=== PATIENT | male | born 1980 | race Caucasian/White ===

== ENCOUNTER 2022-01-12 06:45 | Inpatient (IN) | payer OTHER, SELFPAY ==
[2022-01-12 06:52] VITALS: BP 147/84; PULSE 96; RESP 16; TEMP 36.7; O2SAT 100
--- NOTE | 2022-01-12 07:00 | ED.GENADUL_ITS ---
Discharge Plan Disposition Patient Disposition: STILL A PATIENT Condition: Stable Discharge Details Chief Complaint: Abd Prob Clinical Impression: Abdominal pain, LLQ Primary Care Provider: Franklyn Heredia ED Provider: Ulisses Lindsay Home Meds and New Rx's Prescriptions: No Action No Known Home Meds Medical Decision Making 41-year-old male with a past medical history of diverticulitis with rupture in the past, presents today with left lower quadrant pain. Patient states that 1 week ago he developed left lower quadrant pain, went to see his primary care provider. Suspicion was for diverticulitis, and he was given a prescription for Cipro/Flagyl. Unfortunately the patient's pain went away that afternoon and so he never filled or started taking the medication. 2 days ago the symptoms returned, and it is painful when walking or moving. He has pain with bowel movements but no blood in his stool. He denies chest pain or shortness of breath. He denies any nausea or vomiting. He denies any urinary complaints or genital complaints. No other complaints at this time. No other modifying factors. Physical exam demonstrates mild left lower quadrant tenderness. No right-sided abdominal tenderness. Concern is for diverticulitis, but with the historical context there is also a higher concern for previous rupture and now abscess. I do feel that CT scan of the abdomen is indicated at this time. We will give Toradol for pain, gently rehydrate, monitor closely and reassess. Case will be signed out to my colleague Dr. Abi Joseph for follow-up on labs and imaging. HPI General Date/Time Provider Initiated Documentation: 01/12/22 06:59 . HPI Narrative: 41-year-old male with a past medical history of diverticulitis with rupture in the past, presents today with left lower quadrant pain. Patient states that 1 week ago he developed left lower quadrant pain, went to see his primary care provider. Suspicion was for diverticulitis, and he was given a prescription for Cipro/Flagyl. Unfortunately the patient's pain went away that afternoon and so he never filled or started taking the medication. 2 days ago the symptoms returned, and it is painful when walking or moving. He has pain with bowel movements but no blood in his stool. He denies chest pain or shortness of breath. He denies any nausea or vomiting. He denies any urinary complaints or genital complaints. No other complaints at this time. No other modifying factors. Related Data Home Medications Medication Instructions Recorded Confirmed Unknown [No Known Home Meds] 10/18/16 10/18/16 Allergies Allergy/AdvReac Type Severity Reaction Status Date / Time Penicillins Allergy Unknown known in Unverified 01/12/22 06:59 family members General Stated Complaint: Abd Prob BETY: 3 Review of Systems All systems reviewed & are unremarkable except as noted in HPI and below PFSH All Active Problems (Updated 01/12/22 @ 07:06 by Ulisses Lindsay DO) Abdominal pain, LLQ (Acute) Social History Smoking/Tobacco Use Status: Current-Occasional Tobacco Type: smokeless tobacco Smoking risk assessment performed?: Yes Alcohol Intake: former Drug use: Never Substance use type: does not use Do you feel safe in your relationship?: Yes Exam Narrative Exam Narrative: 1.Const: Well-nourished, Well-developed, appearing stated age 2.Eyes: PERRL, no conjunctival injection, and symmetrical lids. 3.ENT: Atraumatic external nose and ears. Moist MM. Neck: Symmetric, trachea midline, No thyromegaly. 4.CVS: +S1/S2, No murmurs or gallops. Peripheral pulses 2+ and equal in all extremities. Brisk capillary refill in all extremities. 5.RESP: Unlabored respiratory effort. Clear to auscultation bilaterally. No wheezes rales or rhonchi 6.GI: Soft, nondistended, no guarding or rebound. Mild to moderate left lower quadrant pain on palpation. No right-sided abdominal tenderness. No pain or tenderness on palpation of the genitals. No evidence of inguinal hernia. 7.MSK: Normocephalic/Atraumatic, Extremities w/o deformity or ttp No cyanosis or clubbing, Normal movement of all extremities 8.Skin: Warm, Dry. No rashes or lesions. 9.Neuro: policy adviser II-XII grossly intact. Sensation grossly intact, no focal neurologic deficits. 10.Psych: (AAO) x3. Appropriate mood and affect Course Vital Signs Vital signs: Vital Signs Temperature 36.7 C 01/12/22 06:52 Pulse 96 H 01/12/22 06:52 Respiratory Rate 16 01/12/22 06:52 Blood Pressure 147/84 H 01/12/22 06:52 Pulse Oximetry 100 01/12/22 06:52 Temperature 36.7 C 01/12/22 06:52 Temperature Source Temporal Artery Scan 01/12/22 06:52 Pulse 96 H 01/12/22 06:52 Respiratory Rate 16 01/12/22 06:52 Respiratory Effort 01/12/22 06:52 Blood Pressure 147/84 H 01/12/22 06:52 Blood Pressure Position Sitting 01/12/22 06:52 Pulse Oximetry 100 01/12/22 06:52 Pain Level 7 01/12/22 06:52
[2022-01-12 07:17] LABS: Abs Immature Grans 0.06 10^3/uL (0.0-0.06); Absolute Eosinophil Count 0.03 10^3/uL (0.0-0.7); Absolute Lymphocyte Count 1.74 10^3/uL (1.2-3.4); Absolute Monocyte Count 1.24 10^3/uL (0.1-0.8); Basophils % 0.3; Eosinophils % 0.2; HCT 45.4 % (40.0-50.0); HGB 14.6 g/dL (13.5-17.5); Immature Grans % 0.4; Lymphocytes % 11.2; MCH 29.7 pg (27.0-33.0); MCHC 32.2 % (32.0-36.0); MCV 93 fL (80-95); MPV 9.7 fL (8.0-11.0); Neutrophils % 79.9; Platelet Count 233 10^3/uL (130-400); RBC 4.91 10^6/uL (4.36-5.78); RDW 12.3 % (11.8-14.1); RDW-SD 42.4 fL; WBC 15.56 10^3/uL (4.4-10.8)
[2022-01-12] MEDS: Ketorolac 15 MG/ML VIAL IVP (07:22)
[2022-01-12] MEDS: Normal Saline 500 ML IV (07:22)
[2022-01-12 07:28] LABS: Absolute Basophil Count 0.05 10^3/uL (0.0-0.2); Absolute Neutrophil Count 12.43 10^3/uL (1.2-6.7)
[2022-01-12 07:35] LABS: ALT 28 U/L (16-63); AST 15 U/L (15-37); Albumin 3.7 g/dL (3.4-5.0); Alkaline Phosphatase 79 U/L (46-116); Anion Gap 7.2 mmol/L (3-11); BUN 12 mg/dL (7-18); Bilirubin, Total 1.4 mg/dL (0.2-1.0); CO2 27.8 mmol/L (21.0-32.0); CREATININE 1.1 mg/dL (0.70-1.30); Calcium 8.7 mg/dL (8.5-10.1); Chloride 101 mmol/L (98-107); Glucose 114 mg/dL (74-106); Potassium 3.9 mmol/L (3.5-5.1); Sodium 136 mmol/L (136-145); Total Protein 7.9 g/dL (6.4-8.2)
--- NOTE | 2022-01-12 07:49 | DI.CT_ITS ---
Exam(s) CT ABDOMEN PELVIS WO EXAM: CT ABDOMEN PELVIS WO CLINICAL HISTORY: LLQ pain, hx of dtics, eval for divertic rupture. TECHNIQUE: Imaging Protocol: Axial computed tomography images with coronal and sagittal reformatted images were created and reviewed. Oral: no COMPARISON: CT ABD PELVIS WITH CONTRAST from 12/19/2013 FINDINGS: ABDOMEN: Lung Bases: Normal where visualized. Bilateral gynecomastia. Liver: Normal density. No measurable mass. Gallbladder and biliary tract: Gallstones. No biliary dilation. Pancreas: Normal density, no abnormal calcifications or inflammatory process. Spleen: Normal. Kidneys: Normal size, contour and axis. No radiodense stones or obstructive uropathy. No masses seen. Adrenal glands: No masses seen. Lymph nodes: Within normal limits. Abdominal Aorta: Abdominal portion non-dilated. PELVIS: Bladder: Symmetric distention, no gross wall thickening. Bowel: Prominent diverticulosis descending and sigmoid colon. Severe acute diverticulitis involving descending colon. Small adjacent bubbles of free air consistent with perforation. No obstruction. N o drainable abscess. Peritoneal cavity: Small amount of free fluid in low pelvis. Reproductive organs: Within normal limi ts. Bones: Within normal limits. IMPRESSION: Severe diverticulitis of the descending colon with perforation. No abscess. Small amount of fluid in the low pelvis. RADIATION DOSE DELIVERED: 1,188.48mGy.cm Total DLP DATA REPOSITORY: All CT scans at this facility are submitted to the National Radiology Data Registry (NRDR) Dose Index Registry (DIR) with the [employer] (ACR). RADIATION OPTIMIZATION: All CT scans at this facility use at least one of these dose optimization te chniques: automated exposure control; mA and/or kV adjustment per patient size (includes targeted exa ms where dose is matched to clinical indication); or iterative reconstruction.
--- NOTE | 2022-01-12 08:08 | DI.VRAD_ITS ---
Addendum created by Lory Del Valle MD on 01/12/2022 8:10:07 AM EDT: THIS REPORT CONTAINS FINDINGS THAT MAY BE CRITICAL TO PATIENT CARE. The findings were verbally communicated via telephone conference at 8:09 AM EDT on 01/12/[address] Joseph. The findings were acknowledged and understood. Initial report created on 01/12/2022 8:08:32 AM EDT: PROCEDURE INFORMATION: Exam: CT Abdomen And Pelvis Without Contrast Exam date and time: 01/12/2022 7:47 AM Age: 41 years old Clinical indication: Abdominal pain; Generalized; Patient HX: Llq pain, HX of dtics, eval for divertic upture. TECHNIQUE: Imaging protocol: Computed tomography of the abdomen and pelvis without contrast. Radiation optimization: All CT scans at this facility use at least one of these dose optimization techniques: automated exposure control; mA and/or kV adjustment per patient size (includes targeted exams where dose is matched to clinical indication); or iterative reconstruction. COMPARISON: US ABDOMEN ULTRASOUND (P) 09/19/2015 4:03 PM FINDINGS: Lungs: There are dependent hypoventilatory changes bilaterally. There is minimal linear subsegmental atelectasis versus scarring in the right middle lobe. No pleural effusions. Liver: Hepatic steatosis. Gallbladder and bile ducts: Multiple small layering calcified gallstones are noted in the gallbladder. The gallbladder is not overtly dilated. No intrahepatic or extrahepatic biliary ductal dilation. Pancreas: Unremarkable. Spleen: Unremarkable. The spleen is normal in size. Adrenal glands: Unremarkable. Kidneys and ureters: The kidneys are normal and symmetric in size, without hydronephrosis, calcifications, or contour-deforming masses. No calcifications are identified in the ureters, which are normal in caliber. Stomach and bowel: The stomach is largely decompressed and therefore not optimally assessed. The small and large bowel are normal in caliber. There is circumferential mural thickening in and inflammatory fat stranding about the distal descending and proximal sigmoid colon where there are multiple diverticula, findings compatible with acute diverticulitis. There are mottled foci of extraluminal gas adjacent to the distal descending colon, compatible with perforation. No discrete drainable fluid collection is identified to suggest abscess. Appendix: Normal caliber. No findings to suggest appendicitis. Intraperitoneal space: Mild ascites in the left lower quadrant and pelvis. No discrete fluid collection. Mottled foci of extraluminal gas adjacent to the distal descending colon as described above. Retroperitoneal space: Unremarkable. No retroperitoneal collection or mass. Vasculature: Unremarkable. The abdominal aorta is normal in caliber. Lymph nodes: No pathologically enlarged lymph nodes. Urinary bladder: Unremarkable. Reproductive: Unremarkable as visualized. Bones/joints: Degenerative changes. No suspicious osseous lesions. Soft tissues: Bilateral gynecomastia. Other findings: None. IMPRESSION: Perforated acute diverticulitis in the distal descending/proximal sigmoid colon, with very mild pneumoperitoneum and mild ascites. No drainable fluid collection. Dictated and Authenticated by: Lory Del Valle MD. Ordering:BRIONNA Gtz MD
[2022-01-12 08:35] LABS: Bilirubin Small (Negative); Blood Small (Negative); Clarity Clear (Clear); Glucose Negative (Negative); Ketones 40 mg/dL (Negative); Leukocyte Esterase Negative (Negative); Nitrite Positive (Negative); Specific Gravity >= 1.030 (1.005-1.025)
[2022-01-12 08:42] LABS: Bacteria Few HPF (Negative); Crystals Negative HPF (Negative); Epithelial Cells Rare HPF (Negative); Mucus Moderate (Negative); WBC 0-2 HPF (0-5)
[2022-01-12 08:43] LABS: C & S Indicated? Yes; Casts 3-5 Hyaline LPF (Negative)
[2022-01-12 09:02] LABS: Source Nasal/Nares
--- NOTE | 2022-01-12 09:04 | ED.PROG_ITS ---
Date of service: 01/12/22 Time of Service: 08:04 Medical Decision Making Patient signed out to me at time of shift change by Dr. Lindsay with CT, labs pending. CT shows perforated diver reticulitis small amount of ascites, no abscess. I discussed patient presentation and results with Dr. Fraser of surgery, who will admit the patient. Patient is amenable to admission. Medical Records Medical records reviewed: Yes I reviewed the patient's medical records. Imaging Data Radiologic Study: Radiologist's impression: EXAM:? CT ABDOMEN ? PELVIS WO CLINICAL HISTORY: ? LLQ pain, hx of dtics, eval for divertic rupture.? TECHNIQUE:? Imaging Protocol: Axial computed tomography images with coronal and sagittal reformatted images were created and reviewed. Oral:? no COMPARISON:? CT ABD ? PELVIS WITH CONTRAST from 12/19/2013 FINDINGS: ABDOMEN: Lung Bases: Normal where visualized.? Bilateral gynecomastia.? Liver: Normal density. No measurable mass. Gallbladder and biliary tract: Gallstones.? No biliary dilation.? Pancreas: Normal density, no abnormal calcifications or inflammatory process. Spleen: Normal. Kidneys: Normal size, contour and axis. No radiodense stones or obstructive uropathy. No masses seen. Adrenal glands: No masses seen. Lymph nodes: Within normal limits. Abdominal Aorta: Abdominal portion non-dilated. PELVIS:? Bladder: Symmetric distention, no gross wall thickening. Bowel: Prominent diverticulosis descending and sigmoid colon.? Severe acute diverticulitis involving descending colon.? Small adjacent bubbles of free air consistent with perforation.? No obstruction. No drainable abscess. Peritoneal cavity: Small amount of free fluid in low pelvis.? Reproductive organs: Within normal limits. Bones: Within normal limits. IMPRESSION: Severe diverticulitis of the descending colon with perforation. No abscess. Small amount of fluid in the low pelvis. Lab Data Lab results reviewed: Yes I reviewed the patient's lab results. Labs: 01/12/22 08:16 Urine - Reflex from Ua Urine Culture - Preliminary Gram Positive Ju Laboratory Tests Range/Units 01/12/22 01/12/22 01/12/22 07:14 07:14 08:16 WBC (4.4-10.8) 10^3/uL 15.56 H RBC (4.36-5.78) 10^6/uL 4.91 Hgb (13.5-17.5) g/dL 14.6 Hct (40.0-50.0) % 45.4 MCV (80-95) fL 93 MCH (27.0-33.0) pg 29.7 MCHC (32.0-36.0) % 32.2 RDW (11.8-14.1) % 12.3 Plt Count (130-400) 10^3/uL 233 MPV (8.0-11.0) fL 9.7 Immature Gran % 0.4 Neutrophils % 79.9 Lymphocytes % 11.2 Monocytes % 8.0 Eosinophils % 0.2 Basophils % 0.3 Nucleated RBC % (0.0-0.3) % 0.0 Absolute Neutrophils (1.2-6.7) 10^3/uL 12.43 H Absolute Lymphocytes (1.2-3.4) 10^3/uL 1.74 Absolute Monocytes (0.1-0.8) 10^3/uL 1.24 H Absolute Eosinophils (0.0-0.7) 10^3/uL 0.03 Absolute Basophils (0.0-0.2) 10^3/uL 0.05 Sodium (136-145) mmol/L 136 Potassium (3.5-5.1) mmol/L 3.9 Chloride (98-107) mmol/L 101 Carbon Dioxide (21.0-32.0) mmol/L 27.8 Anion Gap (3-11) mmol/L 7.2 BUN (7-18) mg/dL 12 Creatinine (0.70-1.30) mg/dL 1.1 Estimated GFR/1.73 m2 (mL/min/1.73m2) >= 60.00 Glucose (74-106) mg/dL 114 H Calcium (8.5-10.1) mg/dL 8.7 Total Bilirubin (0.2-1.0) mg/dL 1.4 H AST (15-37) U/L 15 ALT (16-63) U/L 28 Alkaline Phosphatase (46-116) U/L 79 Total Protein (6.4-8.2) g/dL 7.9 Albumin (3.4-5.0) g/dL 3.7 Urine Color (Yellow) Dark Yellow Urine Clarity (Clear) Clear Urine pH (5-8) 6.0 Ur Specific [place] (1.005-1.025) >= 1.030 H Urine Protein (Negative) mg/dL 30 H Urine Ketones (Negative) mg/dL 40 H Urine Blood (Negative) Small H Urine Nitrite (Negative) Positive H Urine Bilirubin (Negative) Small H Urine Urobilinogen (Up TO 0.2) EU/dL 1.0 H Ur Leukocyte Esterase (Negative) Negative Urine RBC (0-2) HPF 3-5 H Urine WBC (0-5) HPF 0-2 Ur Epithelial Cells (Negative) HPF Rare Urine Crystals (Negative) HPF Negative Urine Bacteria (Negative) HPF Few Urine Casts (Negative) LPF 3-5 Hyaline Urine Mucus (Negative) Moderate Ur Culture Indicated? Yes Urine Glucose (Negative) mg/dL Negative Sign Out Sign Out Data: Sign Out Comment: LLQ pain, suspect diverticulitis. Pending labs and CT scan Last updated by Ulisses Lindsay DO at 01/12/22 07:08 Discharge Plan Disposition Patient Disposition: [facility] INPATIENT Condition: Stable Discharge Details Clinical Impression: Diverticulitis of large intestine with perforation Admit Date/Time: 01/12/22 08:44 Admit Provider: Keara Fraser Attending Provider: Keara Fraser Primary Care Provider: Franklyn Heredia ED Provider: Kristen Joseph Discharge Data Discharge Date/Time-TO BE ENTERED AT DEPARTURE: 01/12/22 10:05
[2022-01-12] MEDS: Pantoprazole 40 MG VIAL IVP ×2 (09:17→11:50)
[2022-01-12] MEDS: PIPERACILLIN/TAZO 3.375 GM in Normal Saline 50 ML IVPB ×4 (09:24→23:51)
[2022-01-12 10:06] LABS: COVID-19 PCR Negative (Negative)
[2022-01-12 10:17] VITALS: BP 143/89; PULSE 85; RESP 16; TEMP 36.1; O2SAT 99
[2022-01-12 10:23] VITALS: BP 143/89; PULSE 85; RESP 16; TEMP 36.1; O2SAT 100
[2022-01-12] MEDS: Enoxaparin 40 MG/0.4 ML SYR SC (11:51)
[2022-01-12] MEDS: Normal Saline Flush 10 ML SYR IVP (11:51)
[2022-01-12] MEDS: Normal Saline 500 ML 50 ML IV (12:01)
[2022-01-12] MEDS: Lactated Ringers 1,000 ML 125 ML IV (13:52)
[2022-01-12 14:48] VITALS: BP 136/67; PULSE 91; RESP 17; TEMP 37.7; O2SAT 97
--- NOTE | 2022-01-12 15:07 | W.PREOPHP ---
Assessment and Plan Assessment and plan (1) Diverticulitis of large intestine with perforation: Status: Acute Assessment and plan: Mr. Blankenship is a 41 year old with a past medical Hx significant for HTN and previous bout of diverticulitis needing 5 days of hospitalisation and IV ABX treatment. [place] was normal, per patient, except for diverticulosis. he comes in again with LLQ pain. CT scan revealed severe diverticulitis of the descending colon with perforation. No abscess. Discussed with patient the findings and that he is at risk of developing an abscess which may then need drainage. His exam is very benign this afternoon. P: Continue IV ABX Start clear liquids Will get the colonoscopy report from [facility] (2) Hypertension: History of Present Illness Consults Consult date: 01/12/22 Requesting physician: Kristen Joseph Narrative: Mr. Blankenship is a pleasant 41 year old male who was seen in the ER with abdominal pain. He started having LLQ pain last Wednesday. He was started on ABx by his PCP. He then felt better and never started his ABX. he then started to have increasing pain. He tells me that he had an episode of severe diverticulitis 8 years ago and was admitted at [facility] for 5 days for IV antibiotics. He then underwent a Colonoscopy 6 weeks later. He didn't have surgery. He tells me that feels very well now. He has no abdominal pain, N/V. I did reviewe his CT scan. COMPARISON:? CT ABD ? PELVIS WITH CONTRAST from 12/19/2013 FINDINGS: ABDOMEN: Lung Bases: Normal where visualized.? Bilateral gynecomastia.? Liver: Normal density. No measurable mass. Gallbladder and biliary tract: Gallstones.? No biliary dilation.? Pancreas: Normal density, no abnormal calcifications or inflammatory process. Spleen: Normal. Kidneys: Normal size, contour and axis. No radiodense stones or obstructive uropathy. No masses seen. Adrenal glands: No masses seen. Lymph nodes: Within normal limits. Abdominal Aorta: Abdominal portion non-dilated. PELVIS:? Bladder: Symmetric distention, no gross wall thickening. Bowel: Prominent diverticulosis descending and sigmoid colon.? Severe acute diverticulitis involving descending colon.? Small adjacent bubbles of free air consistent with perforation.? No obstruction. No drainable abscess. Peritoneal cavity: Small amount of free fluid in low pelvis.? Reproductive organs: Within normal limits. Bones: Within normal limits. IMPRESSION: Severe diverticulitis of the descending colon with perforation. No abscess. Small amount of fluid in the low pelvis. Review of Systems Constitutional Constitutional: Denies fever(s), Denies headache(s), Denies night sweats, Denies poor appetite and Denies weight loss Eyes Eyes: Denies change in vision ENT Ears, Nose, Mouth, and Throat: Denies change in voice and Denies headache(s) Cardiovascular Cardiovascular: Denies chest pain, Denies chest pain at rest, Denies irregular heart rhythm, Denies palpitations, Denies dyspnea and Denies dyspnea on exertion Respiratory Respiratory: Denies cough, Denies dyspnea and Denies dyspnea on exertion Gastrointestinal Gastrointestinal: Reports as per HPI, Denies dyspepsia and Denies heartburn Genitourinary Genitourinary: Denies oliguria, Denies dysuria and Denies urinary frequency Musculoskeletal Musculoskeletal: Reports system reviewed and no additional complaints, except as documented Integumentary/Breasts Skin/Breast: Reports system reviewed and no additional complaints, except as documented Neurologic Neurologic: Reports system reviewed and no additional complaints, except as documented and Denies headache(s) Psychiatric Psychiatric: Reports system reviewed and no additional complaints, except as documented Endocrine Endocrine: Reports system reviewed and no additional complaints, except as documented and Denies palpitations PFSH All Active Problems (Updated 01/12/22 @ 15:16 by Keara Fraser MD) Diverticulitis of large intestine with perforation (Acute) Abdominal pain, LLQ (Acute) Medical History (Updated 01/12/22 @ 15:16 by Keara Fraser MD) Hypertension Surgical History (Updated 01/12/22 @ 15:13 by Keara Fraser MD) S/P colonoscopy Social History Smoking/Tobacco Use Status: Current-Occasional Tobacco Type: smokeless tobacco Smoking risk assessment performed?: Yes Alcohol Intake: former Drug use: Never Substance use type: does not use Do you feel safe in your relationship?: Yes Meds Allergies and Home Medications Allergies Allergy/AdvReac Type Severity Reaction Status Date / Time Penicillins Allergy Unknown known in Unverified 01/12/22 06:59 family members Home Medications Medication Instructions Recorded Confirmed Type ibuprofen 800 mg tablet 800 mg PO TID PRN 01/12/22 01/12/22 History lisinopril 10 mg tablet 10 mg PO DAILY 01/12/22 01/12/22 History loratadine 10 mg tablet 10 mg PO DAILY 01/12/22 01/12/22 History Exam Const General: cooperative, healthy appearing, comfortable and no acute distress Orientation: alert and oriented x3 HENMT Head: normocephalic and atraumatic Eyes Pupils: PERRL Resp Effort & Inspection: normal respiratory effort Auscultation: clear to auscultation bilaterally Cardio Rate: regular rate Rhythm: regular rhythm Heart Sounds: no gallops, no murmurs and no rubs GI Inspection: normal to inspection Palpation: soft, no hepatosplenomegaly and nontender Auscultation: normal bowel sounds Results Labs Result diagrams: 01/12/22 07:14 01/12/22 07:14 Labs: Laboratory Results - last 24 hr 01/12/22 01/12/22 01/12/22 07:14 07:14 08:16 WBC 15.56 H RBC 4.91 Hgb 14.6 Hct 45.4 MCV 93 MCH 29.7 MCHC 32.2 RDW 12.3 Plt Count 233 MPV 9.7 Immature Gran % 0.4 Neutrophils % 79.9 Lymphocytes % 11.2 Monocytes % 8.0 Eosinophils % 0.2 Basophils % 0.3 Nucleated RBC % 0.0 Absolute Neutrophils 12.43 H Absolute Lymphocytes 1.74 Absolute Monocytes 1.24 H Absolute Eosinophils 0.03 Absolute Basophils 0.05 Sodium 136 Potassium 3.9 Chloride 101 Carbon Dioxide 27.8 Anion Gap 7.2 BUN 12 Creatinine 1.1 Estimated GFR/1.73 m2 >= 60.00 Glucose 114 H Calcium 8.7 Total Bilirubin 1.4 H AST 15 ALT 28 Alkaline Phosphatase 79 Total Protein 7.9 Albumin 3.7 Urine Color Dark Yellow Urine Clarity Clear Urine pH 6.0 Ur Specific [place] >= 1.030 H Urine Protein 30 H Urine Ketones 40 H Urine Blood Small H Urine Nitrite Positive H Urine Bilirubin Small H Urine Urobilinogen 1.0 H Ur Leukocyte Esterase Negative Urine RBC 3-5 H Urine WBC 0-2 Ur Epithelial Cells Rare Urine Crystals Negative Urine Bacteria Few Urine Casts 3-5 Hyaline Urine Mucus Moderate Ur Culture Indicated? Yes Urine Glucose Negative COVID-19 Source SARS-CoV-2 (PCR) 01/12/22 08:56 WBC RBC Hgb Hct MCV MCH MCHC RDW Plt Count MPV Immature Gran % Neutrophils % Lymphocytes % Monocytes % Eosinophils % Basophils % Nucleated RBC % Absolute Neutrophils Absolute Lymphocytes Absolute Monocytes Absolute Eosinophils Absolute Basophils Sodium Potassium Chloride Carbon Dioxide Anion Gap BUN Creatinine Estimated GFR/1.73 m2 Glucose Calcium Total Bilirubin AST ALT Alkaline Phosphatase Total Protein Albumin Urine Color Urine Clarity Urine pH Ur Specific [place] Urine Protein Urine Ketones Urine Blood Urine Nitrite Urine Bilirubin Urine Urobilinogen Ur Leukocyte Esterase Urine RBC Urine WBC Ur Epithelial Cells Urine Crystals Urine Bacteria Urine Casts Urine Mucus Ur Culture Indicated? Urine Glucose COVID-19 Source Nasal/Nares SARS-CoV-2 (PCR) Negative Last Vital Signs Temp 99.9 F H 01/12/22 14:48 Pulse 91 H 01/12/22 14:48 Resp 17 01/12/22 14:48 BP 136/67 01/12/22 14:48 Pulse Ox 97 01/12/22 14:48
[2022-01-12 22:57] VITALS: BP 128/78; PULSE 78; RESP 18; TEMP 37.1; O2SAT 95
[2022-01-13] MEDS: PIPERACILLIN/TAZO 3.375 GM in Normal Saline 50 ML IVPB ×3 (05:39→17:10)
[2022-01-13] MEDS: Lactated Ringers 1,000 ML 75 ML IV (05:39)
[2022-01-13 06:44] LABS: Abs Immature Grans 0.04 10^3/uL (0.0-0.06); Absolute Basophil Count 0.03 10^3/uL (0.0-0.2); Absolute Eosinophil Count 0.12 10^3/uL (0.0-0.7); Absolute Lymphocyte Count 1.48 10^3/uL (1.2-3.4); Absolute Monocyte Count 0.79 10^3/uL (0.1-0.8); Absolute Neutrophil Count 7.02 10^3/uL (1.2-6.7); Basophils % 0.3; Eosinophils % 1.3; HCT 42.1 % (40.0-50.0); HGB 13.6 g/dL (13.5-17.5); Immature Grans % 0.4; Lymphocytes % 15.6; MCH 29.8 pg (27.0-33.0); MCHC 32.3 % (32.0-36.0); MCV 92 fL (80-95); MPV 9.7 fL (8.0-11.0); Monocytes % 8.3; Neutrophils % 74.1; Platelet Count 202 10^3/uL (130-400); RBC 4.57 10^6/uL (4.36-5.78); RDW 12.4 % (11.8-14.1); RDW-SD 42.1 fL; WBC 9.48 10^3/uL (4.4-10.8)
[2022-01-13 07:12] VITALS: BP 116/82; PULSE 82; RESP 18; TEMP 35.7; O2SAT 96
[2022-01-13] MEDS: Lisinopril 10 MG TAB PO (08:16)
[2022-01-13] MEDS: Loratidine 10 MG TAB PO (08:16)
[2022-01-13] MEDS: Enoxaparin 40 MG/0.4 ML SYR SC (11:16)
[2022-01-13] MEDS: Pantoprazole 40 MG VIAL IVP (11:19)
[2022-01-13] MEDS: Normal Saline Flush 10 ML SYR IVP (12:32)
--- NOTE | 2022-01-13 12:41 | PDOC.CMIN ---
- If Service Date Differs Date of service: 01/13/22 Time of Service: 12:41 Care Management Initial Assess REASON FOR HOSPITALIZATION:: Ruptured diverticulitis PAST MEDICAL HISTORY/PAST SURGICAL HISTORY:: Hypertension, Diverticulitis, S/P Colonoscopy PREVIOUS FUNCTIONAL STATUS/SOCIAL/FAMILY SUPPORTS:: Patrice resides in [place], [place] with his Cori and their three young daughters. He is employed multimedia technician at [employer] and is independent at baseline in the community. CURRENT FUNCTIONAL STATUS:: Patrice is sitting in his chair when meets with him, he expresses wanting to return home to his family and to work. He verbalizes understanding of his treatment plan but explains he is motivated to discharge and return home. ADVANCE DIRECTIVES:: None on file. Has patient been provided with info about the portal/API?: Yes Did the patient sign up for the portal?: No CODE STATUS:: Full Code INSURANCE COVERAGE / FINANCIAL ISSUES:: [employer] CURRENT HOME/COMMUNITY SERVICES/EQUIPMENT:: None, currently. PRIMARY CARE PHYSICIAN:: Franklyn Heredia POTENTIAL DISCHARGE NEEDS:: Follow up appointments. Financial Asst packet provided at patient request. PATIENT/FAMILY EDUCATION NEEDS:: Review of discharge instructions, discuss Ask Me Three to ensure understanding of self care needs upon discharge. ANTICIPATED BARRIERS TO DISCHARGE:: None identified. Patient is motivated to return home. TRANSPORTATION:: Patrice reports his truck is at [facility] and he intends driving himself home. PLAN:: Patrice will return home with outpatient follow up with his PCP and surgical services, if indicated. No additional services anticipated. He will transport himself home.
[2022-01-13 15:02] VITALS: BP 121/84; PULSE 85; RESP 18; TEMP 36.1; O2SAT 97
--- NOTE | 2022-01-13 15:57 | W.PM.PROGNOT ---
Date of Service Date of service: 01/13/22 Time of Service: 14:58 Assessment and Plan Assessment and plan (1) Diverticulitis of large intestine with perforation: Status: Acute Assessment and plan: Patient does want to go home today. However given the severity of this of his episode of diverticulitis, I do think she should stay in the hospital another day for complete treatment. Also given patient's reluctance to take medications and follow medical advice. I encouraged him to be up and walking to avoid pneumonia and blood clots We will advance to a soft diet and see how he does. Continue antibiotics and probiotics Supportive cares (2) Hypertension: Subjective Subjective Interval history since last seen: Pt is doing well. no headaches. No CP or SOB. no productive cough. no dysuria. no leg pain or swelling. He had x2 BM today. they were formed. No blood. He has not been up walking- pt encouraged to do this. He is tolerated clears w/ no nausea. He has no abdominal pain. Exam HENMT Other: No jaundice or thrush Resp Other: Clear to auscultation bilaterally Cardio Other: Regular rate and rhythm GI Other: Soft and nontender. Normal bowel sounds. Extrem Other: No pain, redness, edema Objective Last Vital Signs Temp 36.1 C L 01/13/22 15:02 Pulse 85 01/13/22 15:02 Resp 18 01/13/22 15:02 BP 121/84 01/13/22 15:02 Pulse Ox 97 01/13/22 15:02 Laboratory Results - last 24 hr 01/12/22 01/13/22 08:49 06:20 WBC 9.48 RBC 4.57 Hgb 13.6 Hct 42.1 MCV 92 MCH 29.8 MCHC 32.3 RDW 12.4 Plt Count 202 MPV 9.7 Immature Gran % 0.4 Neutrophils % 74.1 Lymphocytes % 15.6 Monocytes % 8.3 Eosinophils % 1.3 Basophils % 0.3 Nucleated RBC % 0.0 Absolute Neutrophils 7.02 H Absolute Lymphocytes 1.48 Absolute Monocytes 0.79 Absolute Eosinophils 0.12 Absolute Basophils 0.03 SARS-CoV-2 (PCR) Cancelled [facility] COVID-19 PCR Cancelled Ref Test Perform Site Cancelled
[2022-01-13 22:51] VITALS: BP 129/80; PULSE 82; RESP 17; TEMP 37.2; O2SAT 96
[2022-01-14] MEDS: Normal Saline Flush 10 ML SYR IVP (00:03)
[2022-01-14] MEDS: Normal Saline 500 ML 30 ML IV (00:03)
[2022-01-14] MEDS: PIPERACILLIN/TAZO 3.375 GM in Normal Saline 50 ML IVPB ×2 (00:03→05:34)
--- NOTE | 2022-01-14 07:06 | W.PM.PROGNOT ---
Date of Service Date of service: 01/14/22 Time of Service: 06:06 Assessment and Plan Assessment and plan (1) Diverticulitis of large intestine with perforation: Status: Acute Assessment and plan: he is doing well. No pain, no fevers or chills. Will advance diet and if he does well will d/c to home. He has 5 days of Cipro and flagyl left at home. I will prescribe another 5 days so he has a total of 10 days of antibiotic therapy. Follow up in the office in 2 weeks (2) Hypertension: Subjective Subjective Interval history since last seen: Mr. Blankenship is feeling well. He has no pain. He is tolerating a full liquid diet. he has had several BM's. Exam Const General: healthy appearing, comfortable and no acute distress Resp Effort & Inspection: normal respiratory effort Auscultation: clear to auscultation bilaterally Cardio Rate: regular rate Rhythm: regular rhythm GI Palpation: soft, no hepatosplenomegaly and nontender Objective Last Vital Signs Temp 99.0 F 01/13/22 22:51 Pulse 82 01/13/22 22:51 Resp 17 01/13/22 22:51 BP 129/80 01/13/22 22:51 Pulse Ox 96 01/13/22 22:51
--- NOTE | 2022-01-14 07:09 | W.PM.DS.N ---
Date of service: 01/14/22 DS: Diagnosis Discharge Diagnosis (1) Diverticulitis of large intestine with perforation: Status: Acute (2) Hypertension: Discharge Plan Disposition Patient Disposition: HOME Condition: Stable Discharge Details Reason For Visit: Ruptured Diverticulitis Admit Date/Time: 01/12/22 08:44 Admit Provider: Keara Fraser Attending Provider: Keara Fraser [facility] Hospital Course: Mr. Blankenship is a 41 year old male who was admitted on Wednesday for diverticulitis with rupture. He had 48 hours of IV antibiotics. he was able to eat without N/V. WBC count was negative and he had no abdominal pain. He is discharged on Cipro and Flagyl Follow up in my office in 2 weeks Home Meds and New Rx's Prescriptions: New ciprofloxacin HCl [Cipro] 500 mg tablet 500 mg PO BID Qty: 10 0RF metronidazole 500 mg tablet 500 mg PO Q8H 5 Days Qty: 15 0RF Continued ibuprofen 800 mg Tablet 800 mg PO TID PRN lisinopril 10 mg Tablet 10 mg PO DAILY loratadine 10 mg Tablet 10 mg PO DAILY Discharge Instructions Instructions: Diverticulitis (DC), Low Fiber Diet (DC) Additional Instructions: Activity at Home after surgery: 1. As tolerated Diet, Nutrition, & wound healin. Low fiber diet Pain Medications: 1. Tylenol 650mg every 6 hours as needed and Ibuprofen 600 mg every 6 hours as needed. You may alternate between the 2 medications every 3 hours 2. If a narcotic has been prescribed take as directed only for breakthrough pain For Constipation: 1. Take Milk of Magnesia or MiraLax as needed for constipation Please call our office if you develop: 1. Fevers >101.5 2. Nausea or Vomiting 3. Worsening pain If after hours please call the Hospital at and ask to speak to the on-call surgeon Stand Alone Forms: Nursing Discharge Form Referrals: Keara Fraser MD [ [facility] STAFF PHYSICIAN] - 02/03/22 9:30 am () Activity:: Activity as Tolerated Equipment/Supplies:: No Equipment Needed Diet:: low fiber Discharge Orders Discharge Orders: Discharge Order (Routine); Ordered 01/14/22 Ordered By: Keara Fraser DS: Summary Time Spent with Patient providing and/or coordinating discharge services: Less than 30 minutes Status at Discharge Functional status at discharge: independent ambulation Overall status at discharge: patient is back to baseline Mental Status: mental status grossly normal Speech and Movement: speech and movement normal Mood: congruent mood Affect: normal affect Exam Psych Mental Status: mental status grossly normal Speech and Movement: speech and movement normal Mood: congruent mood Affect: normal affect DS: Data Vitals/I&O Vitals and I&O: Vital Signs Temperature 99.0 F 01/13/22 22:51 Temperature Source Tympanic 01/13/22 22:51 Pulse 82 01/13/22 22:51 Pulse Rhythm Regular 01/14/22 03:54 Respiratory Rate 17 01/13/22 22:51 Respiratory Effort 01/14/22 03:54 Respiratory Depth Normal 01/14/22 03:54 Respiratory Pattern Normal 01/14/22 03:54 Blood Pressure 129/80 01/13/22 22:51 Blood Pressure Position Sitting 01/12/22 06:52 Pulse Oximetry 96 01/13/22 22:51 Oxygen Delivery Method Room Air 01/13/22 22:51 Oxygen Flow Rate 0 01/13/22 22:51 Pain Level 0 01/13/22 22:51 Intake & Output 01/13/22 01/13/22 01/14/22 11:59 23:59 11:59 Intake Total 1299.167 / 2324.667 1025.5 / 2324.667 131 / 131 Output Total 600 / 600 Balance 699.167 / 8974.616 8354.5 / 1724.667 131 / 131 Intake: IV 1299.167 / 1964.667 665.5 / 1964.667 131 / 131 Oral 360 / 360 Output: Urine 600 / 600 Other: Urine Color Straw Urine Appearance Clear Voiding Methods Toilet Data Completed and Pending Labs on day of discharge: Preliminary micro results at discharge 01/12/22 08:16 Urine Culture - Preliminary Urine - Reflex from Ua Gram Positive Ju PFSH All Active Problems Diverticulitis of large intestine with perforation (Acute) Medical History Hypertension Surgical History S/P colonoscopy Social History Smoking/Tobacco Use Status: Current-Occasional Tobacco Type: smokeless tobacco Smoking risk assessment performed?: Yes Alcohol Intake: former Drug use: Never Substance use type: does not use Do you feel safe in your relationship?: Yes
[2022-01-14 07:20] VITALS: BP 126/79; PULSE 82; RESP 14; TEMP 36.2; O2SAT 97
[2022-01-14] MEDS: Loratidine 10 MG TAB PO (07:21)
[2022-01-14] MEDS: Lisinopril 10 MG TAB PO (07:22)
--- NOTE | 2022-01-14 10:26 | CHAPLAIN ---
Patrice was dressed and ready to be discharged when I met him this morning. 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 His sister, Catarino Torres is an [employer] OFFICER here and visited Patrice yesterday. His truck is in the parking lot so he's ready to leave as soon as he's discharged.
--- NOTE | 2022-01-14 12:45 | CMDISCH_ITS ---
- If Service Date Differs Date of service: 01/14/22 Time of Service: 12:46 LACE Index Scoring Tool - Questions: Length of Stay (in days): 2 Acuity (Admit via E.D.?): Yes E.D. Visits: 1 - Answers: Total Score: 6 Risk of Readmission: Low Risk Care Management Discharge Reason for Hospitalization: Ruptured diverticulitis Discharge Plan: Patrice will return home with outpatient follow up with his PCP and surgical services, if indicated. No additional services needed. He will tra nsport himself home. Patient/Family Education Needs: Review of discharge instructions, discuss Ask Me Three to ensure understanding of self care needs upon discharge.
== END 2022-01-14 11:27 | disposition home or self-care (01) | DRG 392 ==
LOC: ER 09:12 → MS 10:53
PROVIDERS: Student in an Organized Health Care Education/Training Program; Admitting Provider Surgery; Emergency Provider Student in an Organized Health Care Education/Training Program; PCP Internal Medicine; Visit Provider Surgery
DX: K57.20 Diverticulitis of large intestine with perforation and abscess without bleeding (principal); I10 Essential (primary) hypertension; Z72.0 Tobacco use
CPT/HCPCS: 36415; 80053; 87635; 96361; 96365; 96375; 99285; J1650; U0003; 74176; 81003; 81015; 85025; 87086; J1885; J2543

== ENCOUNTER 2022-03-09 19:34 | Outpatient (CLI) | payer OTHER, SELFPAY | END 2022-03-09 19:35 | disposition home or self-care (01) | LOC: LBO 19:34 | PROVIDERS: PCP Internal Medicine; Visit Provider Surgery ==

== ENCOUNTER 2023-07-21 16:01 | Outpatient (REF) | payer OTHER, SELFPAY ==
[2023-07-21 20:55] LABS: Calculated LDL 103 mg/dL (<100); Cholesterol 165 mg/dL (<200); HDL Cholesterol 37 mg/dL (40-60); Triglyceride 127 mg/dL (<150)
== END 2023-07-21 16:02 | disposition home or self-care (01) ==
LOC: NCHCN 16:01
PROVIDERS: PCP Internal Medicine; Visit Provider Nurse Practitioner Family
DX: I10 Essential (primary) hypertension (principal)
CPT/HCPCS: 80061

== ENCOUNTER 2023-07-28 10:24 | Outpatient (REF) | payer OTHER, SELFPAY ==
[2023-07-28 20:39] LABS: ALT 38 U/L (16-63); AST 28 U/L (15-37); Albumin 3.7 g/dL (3.4-5.0); Alkaline Phosphatase 77 U/L (46-116); Anion Gap 5.6 mmol/L (3-11); BUN 18 mg/dL (7-18); Bilirubin, Total 0.3 mg/dL (0.2-1.0); CO2 30.4 mmol/L (21.0-32.0); Calcium 8.7 mg/dL (8.5-10.1); Chloride 104 mmol/L (98-107); Estimated GFR 95.18 (mL/min/1.73m2); Glucose 75 mg/dL (74-106); Potassium 4.4 mmol/L (3.5-5.1); Sodium 140 mmol/L (136-145); Total Protein 7.7 g/dL (6.4-8.2)
== END 2023-07-28 10:25 | disposition home or self-care (01) ==
LOC: NCHCN 10:24
PROVIDERS: PCP Internal Medicine; Visit Provider Internal Medicine
DX: Z00.00 Encounter for general adult medical examination without abnormal findings (principal)
CPT/HCPCS: 80053

== ENCOUNTER 2024-12-06 16:38 | Outpatient (REF) | payer OTHER, SELFPAY ==
[2024-12-06 20:55] LABS: ALT 53 U/L (16-63); AST 46 U/L (15-37); Albumin 4.2 g/dL (3.4-5.0); Alkaline Phosphatase 87 U/L (46-116); Anion Gap 7.3 mmol/L (3-11); BUN 16 mg/dL (7-18); Bilirubin, Total 0.3 mg/dL (0.2-1.0); CO2 28.7 mmol/L (21.0-32.0); CREATININE 1.1 mg/dL (0.70-1.30); Calcium 9.2 mg/dL (8.5-10.1); Calculated LDL 111 mg/dL (<100); Chloride 107 mmol/L (98-107); Cholesterol 208 mg/dL (<200); Estimated GFR 84.37 (mL/min/1.73m2); Glucose 106 mg/dL (74-106); HDL Cholesterol 35 mg/dL (>or=40); Potassium 4.5 mmol/L (3.5-5.1); Sodium 143 mmol/L (136-145); Triglyceride 311 mg/dL (<150)
== END 2024-12-06 16:39 | disposition home or self-care (01) ==
LOC: NCHCN 16:38
PROVIDERS: PCP Nurse Practitioner Family; Visit Provider Nurse Practitioner Family
DX: I10 Essential (primary) hypertension (principal)
CPT/HCPCS: 80053; 80061

== ENCOUNTER 2025-05-11 10:14 | Outpatient (REF) | payer OTHER, SELFPAY ==
[2025-05-11 19:43] LABS: ALT 52 U/L (16-63); AST 32 U/L (15-37); Albumin 3.9 g/dL (3.4-5.0); Alkaline Phosphatase 76 U/L (46-116); Anion Gap 5.6 mmol/L (3-11); BUN 14 mg/dL (7-18); Bilirubin, Total 0.5 mg/dL (0.2-1.0); CO2 29.4 mmol/L (21.0-32.0); Calcium 8.9 mg/dL (8.5-10.1); Chloride 105 mmol/L (98-107); Estimated GFR 106.67 (mL/min/1.73m2); Glucose 99 mg/dL (74-106); Potassium 4.5 mmol/L (3.5-5.1); Sodium 140 mmol/L (136-145); Total Protein 7.6 g/dL (6.4-8.2)
== END 2025-05-11 10:15 | disposition home or self-care (01) ==
LOC: NCHCN 10:14
PROVIDERS: PCP Nurse Practitioner Family; Visit Provider Nurse Practitioner Family
DX: E78.5 Hyperlipidemia, unspecified (principal)
CPT/HCPCS: 80053